=== PATIENT | male | born 1990 | race Caucasian/White ===

== ENCOUNTER 2017-12-02 21:52 | Emergency (ER) | payer MEDICAID ==
[~2017-12-02] VITALS: Ht 182.9 cm; Wt 79.4 kg
[2017-12-02 22:25] VITALS: BP 124/52
[2017-12-02] MEDS ORDERED: NKM (22:25)
--- NOTE | 2017-12-02 23:02 | Emergency Room Report ---
History of Present Illness General Chief Complaint: Upper Extremity Injury Source: Patient Present Illness HPI Is a 26-year-old [id number] male presents with injury to the left bicep area. He was sparring was doing body work. After sparring he noticed some swelling and bruising to his left bicep area. Better after icing it down. No other trauma. Mild pain. Full range of motion of the arm. Allergies: Coded Allergies: No Known Allergies (Unverified , 12/02/17) Patient History Past Medical History: see triage record, old chart reviewed Past Surgical History: none Pertinent Family History: none Social History: Reports: smoking Immunizations: other Reviewed Nursing Documentation: PMH: Agreed, PSxH: Agreed Nursing Documentation-PMH Past Medical History: No Stated History Review of Systems Eye: Denies: eye pain, blurred vision ENT: Denies: ear pain, nose congestion, throat swelling Respiratory: Denies: cough, shortness of breath Cardiovascular: Denies: chest pain, palpitations Gastrointestinal: Denies: abdominal pain, diarrhea, nausea, vomiting Musculoskeletal: Denies: back pain, joint pain Skin: Denies: rash Neurological: Denies: headache, numbness Endocrine: Denies: increased thirst, increased urine Hematologic/Lymphatic: Denies: easy bruising All Other Systems: negative except mentioned in HPI Physical Exam Vital Signs Date Time Temp Pulse Resp B/P (MAP) Pulse Ox O2 Delivery O2 Flow Rate FiO2 12/02/17 22:19 97.7 73 16 124/52 98 Room Air 97.7 vitals normal Sp02 EP Interpretation: reviewed, normal General Appearance: well appearing, no apparent distress, alert Head: normocephalic, atraumatic Eyes: bilateral eye PERRL, bilateral eye EOMI ENT: hearing grossly normal, normal pharynx Neck: full range of motion, supple, no meningismus Respiratory: chest non-tender, lungs clear, normal breath sounds Cardiovascular #1: regular rate, rhythm, no murmur Gastrointestinal: normal bowel sounds, non tender, no mass, no organomegaly, no bruit, non-distended Musculoskeletal: back normal, gait/station normal, normal range of motion, other - Left arm: He has 2-3 cm area of ecchymosis to the distal bicep area. Bicep muscle is strong with no deformity to bicep tendon. Neurologic: alert, oriented x3 Psychiatric: mood/affect normal Skin: warm/dry Procedures Splinting Splinting : Consent: Verbal Location: Left elbow Pre-Made Type: sling Pre-Proc Neuro Vasc Exam: normal Post-Proc Neuro Vasc Exam: normal Patient Tolerated: Well Complications: None Medical Decision Making Diagnostic Impression: Primary Impression: Contusion of arm, left Qualified Codes: S40.022A - Contusion of left upper arm, initial encounter ER Course Patient with a contusion to the left upper extremity. This is probably from direct trauma of sparring. He may have a minor tear of the muscle. The bicep tendon itself is strong without deformity. I doubt there is a bicep tendon tear. Patient will be placed in a sling and discharge home. Last Vital Signs Date Time Temp Pulse Resp B/P (MAP) Pulse Ox O2 Delivery O2 Flow Rate FiO2 12/02/17 22:25 97.7 73 16 124/52 98 Room Air 97.7 Status: improved Disposition: HOME, SELF-CARE Condition: Stable Patient Instructions: CONTUSION, Upper Extremity Additional Instructions: ice pack to the area. Followup with your DrAnnamaria in 7 days. No sparring or working out with upper Extremities. HORACE ESCOBAR M.D. Dec 02, 2017 23:02
[2017-12-02 23:09] VITALS: BP 124/52
== END 2017-12-02 23:45 | disposition home or self-care (01) ==
LOC: EMR 23:15
DX: S40.022A Contusion of left upper arm, initial encounter (principal); X58.XXXA Exposure to other specified factors, initial encounter; Y92.9 Unspecified place or not applicable; F17.200 Nicotine dependence, unspecified, uncomplicated
CPT/HCPCS: 99283

== ENCOUNTER 2018-04-12 15:28 | Emergency (ER) | payer MEDICAID ==
[~2018-04-12] VITALS: Ht 182.9 cm; Wt 81.6 kg
[~2018-04-12 15:28] MED LIST: NKM
[2018-04-12 15:46] VITALS: BP 120/60
--- NOTE | 2018-04-12 16:36 | Emergency Room Report ---
History of Present Illness General Chief Complaint: Pain Source: Patient Present Illness HPI pt is a 27 y.o. M, with no sig pmhx, here c/o 2 days of left knee pain after roller balding for 15miles and possibly twisting his left knee. denies fall, trauma. rates pain 5/10, no radiation, no tingling/numbness, took advil with improvement. denies other injury, sob, cp, palpitation, back pain. Allergies: Coded Allergies: No Known Allergies (Unverified , 12/02/17) Patient History Past Medical History: see triage record Past Surgical History: none Pertinent Family History: none Immunizations: UTD Reviewed Nursing Documentation: PMH: Agreed; PSxH: Agreed Nursing Documentation-PMH Past Medical History: No Stated History Review of Systems All Other Systems: negative except mentioned in HPI Physical Exam Vital Signs Date Time Temp Pulse Resp B/P (MAP) Pulse Ox O2 Delivery O2 Flow Rate FiO2 04/12/18 15:30 98.7 65 15 120/60 98 Room Air 98.8 Sp02 EP Interpretation: reviewed, normal General Appearance: normal inspection, well appearing, no apparent distress, alert, GCS 15 Head: normocephalic, atraumatic Eyes: bilateral eye normal inspection, bilateral eye PERRL ENT: normal ENT inspection, hearing grossly normal, normal pharynx Neck: normal inspection, full range of motion, supple, thyroid normal Respiratory: normal inspection, chest non-tender, lungs clear, normal breath sounds, no rhonchi, no respiratory distress, no retraction, no accessory muscle use Cardiovascular #1: normal inspection, normal peripheral pulses, no edema, no murmur, no rub Cardiovascular #2: 2+ dorsalis pedis (R), 2+ dorsalis pedis (L) Gastrointestinal: normal inspection, soft Rectal: deferred Genitourinary: deferred Musculoskeletal: back normal, digits/nails normal, normal range of motion, non- tender, no calf tenderness, pelvis stable, other - crepitus and joint laxity over left knee Neurologic: normal inspection, alert, oriented x3 Psychiatric: normal inspection, judgement/insight normal, memory normal Skin: normal inspection, normal color, no rash Lymphatic: normal inspection, no adenopathy Medical Decision Making PA Attestation all orders, dx, tx plans reviewed by my supervising physician Dr. Matthew Reaction to Intervention: Improved Diagnostic Impression: Primary Impression: Left knee sprain Additional Impression: Knee effusion ER Course pt is a 27 y.o. M, with no sig pmhx, here c/o 2 days of left knee pain after roller balding for 15miles and possibly twisting his left knee. denies fall, trauma. rates pain 5/10, no radiation, no tingling/numbness, took advil with improvement. denies other injury, sob, cp, palpitation, back pain. Ddx considered but are not limited to knee contusion, meniscus tear, effsuion of knee Vital signs: are WNL, pt. is afebrile H&PE are most consistent with knee sprain ORDERS: L knee xray 3 views ED INTERVENTIONS: None required at this time. DISCHARGE: At this time pt. is stable for d/c to home. Will provide printed patient care instructions, and any necessary prescriptions. Care plan and follow up instructions have been discussed with the patient prior to discharge. Other X-Ray Diagnostic Results Other X-Ray Diagnostic Results : X-Ray ordered: L knee # of Views/Limited Vs Complete: 3 View Indication: Other - twisting injury EP Interpretation: Yes PA Xray: Interpretation reviewed, by supervising MD, and agrees with findings. Interpretation: no dislocation, no soft tissue swelling, no fractures Impression: No acute disease Electronically Signed by: Mino Horan PA-C Last Vital Signs Date Time Temp Pulse Resp B/P (MAP) Pulse Ox O2 Delivery O2 Flow Rate FiO2 04/12/18 15:46 98.8 65 15 120/60 98 Room Air 98.8 Disposition: HOME, SELF-CARE Condition: Stable Scripts Naproxen* (NAPROXEN*) 500 Mg Tablet 500 MG ORAL TWICE A DAY for 10 Days, #20 TAB Prov: Mino Mckeon 04/12/18 Patient Instructions: Knee Sprain Additional Instructions: wear a knee immobilizer, take Naproxen as directed with food, avoid straneous physical activity, elevate, ICE/HEAT. follow up with primary provider. return to ED if pain worsens. Mino Mckeon Apr 12, 2018 16:36
[2018-04-12] MEDS ORDERED: NAPROXEN500 M2 ORAL (17:25)
[2018-04-12 17:34] VITALS: BP_SYST 120; BP_SYST 125; BP_DIAS 60; BP_DIAS 66
--- NOTE | 2018-04-13 10:56 | Diagnostic Imaging Report ---
Indication: Knee pain Technique: 3 views of the left knee Comparison: None Findings: No suprapatellar effusion. No acute fractures. No dislocations. Joint spaces are preserved Impression: Negative
== END 2018-04-12 17:35 | disposition home or self-care (01) ==
LOC: EMR 16:08
DX: S83.92XA Sprain of unspecified site of left knee, initial encounter (principal); M25.462 Effusion, left knee; X50.1XXA Overexertion from prolonged static or awkward postures, initial encounter; Y93.51 Activity, roller skating (inline) and skateboarding; Y92.9 Unspecified place or not applicable
CPT/HCPCS: 99283